=== PATIENT | female | born 1995 | race American Indian/Alaskan Native ===

== ENCOUNTER 2018-06-24 22:27 | Emergency (ER) | payer OTHER ==
--- NOTE | 2018-06-25 00:39 | XRay Report ---
FINAL REPORT PROCEDURE: XR WRIST 2V RT TECHNIQUE: RIGHT wrist radiographs, AP and lateral views. HISTORY: right wrist pain COMPARISON: No prior studies are available for comparison. FINDINGS: Fracture(s)and/or Dislocation(s): None. Alignment: Normal. Joint space(s): Normal. Soft tissues: Normal. Bone mineralization: Normal. Foreign bodies: None. IMPRESSION: Normal Examination
--- NOTE | 2018-06-25 01:24 | Emergency Department Report ---
Upper Extremity - HPI Chief Complaint: Extremity Injury, Upper Stated Complaint: RIGHT WRIST INJURY(WORKER'S COMP) Time Seen by Provider: 06/25/18 00:55 Upper Extremity: Right Wrist (right wrist pain after injury) Occurred When: Today (while at work at 6 PM) Mechanism: Other (accidentally hit her right wrist on bedside table) Severity: severe Symptoms: Yes Pain with Movement (right wrist 10/10), Yes Limited Range of Movement (right wrist due to pain), Yes Swelling (right wrist), No Deformity, No Numbness, No Weakness, No Bruising/Ecchymosis, No Laceration or Abrasion Other History: This is a 23-year-old female here report that she injured her right wrist while at work today. 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 She is complaining pain and swelling. Pain is worse with movement 10/10 and a cane. She said initially work she had numbness to her fingers but she does not have any at present. Denies any radiation of pain proximally. Pain is localized the left wrist. No pain med ication taken prior to coming to emergency room. Patient also to get workman's comp urine and blood tests she has been taking care of by nursing staff. Pain is worse with movement and better with rest. ED Review of Systems ROS: Stated complaint: RIGHT WRIST INJURY(WORKER'S COMP) Other details as noted in HPI Constitutional: denies: chills, fever Respiratory: denies: cough, shortness of breath, wheezing Cardiovascular: denies: chest pain, palpitations, edema, syncope Gastrointestinal: denies: abdominal pain, nausea, vomiting Genitourinary: denies: dysuria, hematuria Musculoskeletal: joint swelling, arthralgia. denies: back pain, myalgia Skin: denies: rash Neurological: numbness. denies: headache, weakness, paresthesias, abnormal gait, vertigo ED Past Medical Hx - Past Medical History Previous Medical History?: No - Surgical History Past Surgical History?: No - Family History Family history: no significant - Social History Smoking Status: Never Smoker Substance Use Type: None - Medications Home Medications: Home Medications Medication Instructions Recorded Confirmed Last Taken Type Ibuprofen [Motrin] 800 mg PO Q8HR PRN #12 tablet 06/25/18 Unknown Rx Upper Extremity Exam - Exam General: Vital signs noted. No distress. Alert and acting appropriately. This is a 23-year-old female well-nourished well-developed in no acute distress. Head and Torso: No HEENT Abnormality, No Neck Tenderness, No Chest/Lungs Abnormality, No Abdominal Tenderness, No Back Tenderness Shoulder Exam: Yes Normal Range of Motion in Shoulder, No Shoulder Tenderness, No Clavicle Tenderness, No Shoulder Deformity, No AC Joint Tenderness Arm Exam: No Arm/Humerus Tenderness, No Arm Deformity Elbow: Yes Normal Range of Motion in Elbow, No Elbow Tenderness, No Elbow Deformity Forearm: No Forearm Tenderness, No Forearm Deformity, No Pain with Pronation, No Pain with Supination Wrist: Yes Wrist Tenderness (tenderness to palpate to wrist, right), Yes Normal ROM in Wrist (she has full range of motion to her right wrist but she reports pain with flexion and extension.), No Wrist Deformity, No Snuffbox Tenderness, No Pain with Axial Thumb Compression Hand: Yes Normal ROM in Digit(s), No Hand Tenderness, No Hand Deformity, No Digit Tenderness, No Digit(s) Deformity, No Tendon Dysfunction CMS Exam: Yes Normal Distal Pulses (No cce. + 2 pulses in all extremities, no neurovascular compromise), Yes Normal Capillary Refill (capillary refill less than 2 seconds), Yes Normal Distal Sensation (patient with good color, sensation temperature movement to extremities.), No Broken Skin ED Course Vital Signs 06/24/18 23:11 Temperature 98.1 F Pulse Rate 85 Respiratory 16 Rate Blood Pressure 126/62 O2 Sat by Pulse 100 Oximetry - Reevaluation(s) Reevaluation #1: 06/25/18 03:00 Patient given Motrin 800 mg by mouth for right wrist pain. He see procedure note for splinted. - Orthopedic Splinting/Casting Injury #1 Side: right Upper Extremity Injury Location: wrist ([employer] were ordered a right Velcro wrist for the last 35) Upper Extremity Immobilizer: wrist splint Additional Comments: Patient with you color, temperature movement and sensation to fingers of right wrist. This is status post splinting ED Medical Decision Making - Lab Data Patient to have [employer] urine drug screen and I will call blood level done by lab. - Radiology Data Radiology results: report reviewed X-ray of right wrist revealed no acute findings. This was dictated by radiologist and report reviewed by myself. Findings [facility] [address] [place] [address] XRay Report Signed Patient: BOB AKBAR MR#: [id number] : 1995 Acct:[id number] Age/Sex: 23 / F ADM Date: 06/24/18 Loc: ED Attending Dr: Ordering Physician: KANNAN SALAMANCA MD Date of Service: 06/24/18 Procedure(s): XR wrist 2V RT Accession Number(s): [id number] cc: ED MD CHEIKH Fluoro Time In Minutes: FINAL REPORT PROCEDURE: XR WRIST 2V RT TECHNIQUE: RIGHT wrist radiographs, AP and lateral views. HISTORY: right wrist pain COMPARISON: No prior studies are available for comparison. FINDINGS: Fracture(s)and/or Dislocation(s): None. Alignment: Normal. Joint space(s): Normal. Soft tissues: Normal. Bone mineralization: Normal. Foreign bodies: None. IMPRESSION: Normal Examination Transcribed By: CO Dictated By: EUNICE SANTIAGO MD Electronically Authenticated By: EUNICE SANTIAGO MD Signed Date/Time: 06/25/1838 DD/ TD/TT: 06/25/1837 - Medical Decision Making This is a 23-year-old female here reports that she injured herself at work today. She is complaining of right wrist pain. Patient was given Motrin 800 mg by mouth and she had x-ray of right wrist which reveals no acute findings. Findings were reviewed by myself and dictated by radiologist. Please see procedure note for details on splinting. Laboratory retrieved urine specimen and lab specimen for workman's comp . I discussed x-ray results, diagnosis and treatment plan with patient. Patient with right wrist sprain and she discharged home in stable condition with prescription for Motrin and given information Rice therapy and to follow-up with orthopedic doctor if her conditions worsen - Differential Diagnosis FX, dislocation, sprain, musculoskeletal pain Critical care attestation.: If time is entered above; I have spent that time in minutes in the direct care of this critically ill patient, excluding procedure time. ED Disposition Clinical Impression: Right wrist sprain Qualifiers: Encounter type: initial encounter Qualified Code(s): S63.501A - Unspecified sprain of right wrist, initial encounter Right wrist injury Qualifiers: Encounter type: initial encounter Qualified Code(s): S69.91XA - Unspecified injury of right wrist, hand and finger(s), initial encounter Disposition: TO HOME OR SELFCARE Is pt being admited?: No Does the pt Need Aspirin: No Condition: Stable Instructions: Wrist Sprain (ED), Wrist Injury (ED), RICE Therapy (ED) Additional Instructions: Please follow up with orthopedic doctor as instructed if he continued to have wrist pain Wear Velcro wrist splint for at least 3 days and follow discharge instruction on rice therapy Take Motrin for pain but please make sure you take this medication with food as it could cause irritation to stomach lining and Referrals: PRIMARY CARE, [Primary Care Provider] - 2-3 Days ZONIA NAVARRO MD [Staff Physician] - 2-3 Days Forms: Work/School Release Form(ED)
[2018-06-25] MEDS ORDERED: IBUPROFEN PO ONE (02:55)
[2018-06-25 04:48] VITALS: BP 128/84
== END 2018-06-25 04:06 | disposition home or self-care (01) ==
LOC: ED 22:27
DX: S63.501A Unspecified sprain of right wrist, initial encounter (principal); S69.91XA Unspecified injury of right wrist, hand and finger(s), initial encounter; W19.XXXA Unspecified fall, initial encounter; Y93.89 Activity, other specified; Y99.8 Other external cause status; Y92.69 Other specified industrial and construction area as the place of occurrence of the external cause
CPT/HCPCS: 29125; 36415; 73100; 99284; G0480; 80320